=== PATIENT | female | born 1965 | race Caucasian/White ===

== ENCOUNTER 2024-11-15 22:18 | Emergency (ER) | payer BC | END 2024-11-15 23:45 | disposition home or self-care (01) | LOC: CC.ED 22:18 | DX: S93.601A Unspecified sprain of right foot, initial encounter (principal); Z88.8 Allergy status to other drugs, medicaments and biological substances; Z79.899 Other long term (current) drug therapy; X58.XXXA Exposure to other specified factors, initial encounter | CPT/HCPCS: 73630-RT; 99283 ==